=== PATIENT | female | born 1970 | race Caucasian/White ===

== ENCOUNTER 2017-05-26 19:00 | Emergency (ER) | payer OTHER ==
[~2017-05-26] VITALS: Ht 160 cm; Wt 99.8 kg
[2017-05-26] MEDS ORDERED: Zofran Odt4 MG SL (20:26)
== END 2017-05-26 20:39 | disposition home or self-care (01) ==
LOC: ER 19:00
DX: J11.1 Influenza due to unidentified influenza virus with other respiratory manifestations (principal); Z88.2 Allergy status to sulfonamides; Z88.8 Allergy status to other drugs, medicaments and biological substances
CPT/HCPCS: 71046; 99283

== ENCOUNTER → 2020-12-08 | Outpatient (CLI) | payer BC ==
[~2020-12-08] MED LIST: Zofran Odt4 MG SL
== END | disposition home or self-care (01) ==
LOC: LAB 15:33 → LAB SHORT 15:33
DX: M54.5 Low back pain (principal)
CPT/HCPCS: 87086

== ENCOUNTER → 2021-02-18 | Outpatient (CLI) | payer BC | END | disposition home or self-care (01) | LOC: LAB 13:31 → LAB SHORT 13:31 | DX: N39.0 Urinary tract infection, site not specified (principal) | CPT/HCPCS: 87086 ==

== ENCOUNTER → 2024-06-16 | Outpatient (CLI) | payer BC | END | disposition home or self-care (01) | LOC: LAB SHORT 11:26 | DX: R10.11 Right upper quadrant pain (principal) | CPT/HCPCS: 87086 ==